=== PATIENT | male | born 1950 | race American Indian/Alaskan Native ===

== ENCOUNTER 2017-11-27 10:30 | Emergency (ER) | payer MEDICARE, OTHER ==
[2017-11-27] MEDS ORDERED: NACL 0.9% 1000 ML 1,000 ML IV ONE ×2 (10:43→11:17)
[2017-11-27] MEDS ORDERED: TORADOL IV ONE (11:17)
[2017-11-27] MEDS ORDERED: BENADRYL IV ONE (11:17)
[2017-11-27] MEDS ORDERED: REGLAN IV ONE (11:17)
[2017-11-27] MEDS ORDERED: DECADRON IV ONE (11:18)
[2017-11-27] MEDS ORDERED: ALUM-MAG HYDROX-SIMETH 200-200-20MG/5ML PO ONE (11:18)
--- NOTE | 2017-11-27 11:25 | Emergency Department Report ---
ED Abdominal Pain HPI - General Chief Complaint: Abdominal Pain Stated Complaint: ABDOMINAL PAIN Time Seen by Provider: 11/27/17 11:04 Source: patient, EMS Mode of arrival: Wheelchair Limitations: No Limitations - History of Present Illness Initial Comments: Mr lara is a 67 year-old man with hx of HTN, DM, menieres disease who presents with abdominal pain, ULRICH and vertigo. Reports meniere disease flare since this morning. Reports vertigo elicited with standing. Reports this feel like previous attacks. Reports onset of ULRICH when he came into the ED. Has a hx of migraine HAs that are elicited by light. ULRICH is behind his eyes, worse with light exposure. has had abdominal pain since last night. LLQ mostly. had small, loose BM last night. Endorses chills/sweats, no fever. No chest pain. no shortness of breath. Reports being told he needs abdominal surgery, but he does not know for what. he does not know nearly any of his PMH, just asks us to refer [facility]. has his active diagnoses and mediation list only. On protonix. No other abominal meds. MD Complaint: abdominal pain -: Gradual, days(s) Location: LLQ Radiation: none Migration to: no migration Severity: moderate Quality: stabbing Consistency: intermittent Improves With: nothing Worsens With: nothing Associated Symptoms: chills - Related Data Allergies Allergy/AdvReac Type Severity Reaction Status Date / Time Unable to Assess Allergy Unverified 11/27/17 10:43 ED Review of Systems ROS: Stated complaint: ABDOMINAL PAIN Other details as noted in HPI Comment: All other systems reviewed and negative ED Past Medical Hx - Past Medical History Hx Hypertension: Yes Hx Diabetes: Yes Hx Renal Disease: Yes Hx Headaches / Migraines: Yes Hx Psychiatric Treatment: Yes Additional medical history: High cholesterol, osteoarthritis - Social History Smoking Status: Never Smoker Substance Use Type: None ED Physical Exam - General Limitations: No Limitations General appearance: alert, other (uncomfortable, clutching his stomach) - Head Head exam: Present: atraumatic, normocephalic - Eye Eye exam: Present: normal appearance, PERRL, EOMI - ENT ENT exam: Present: normal exam, normal orophraynx, mucous membranes moist - Neck Neck exam: Present: normal inspection, full ROM. Absent: tenderness, meningismus - Respiratory Respiratory exam: Present: normal lung sounds bilaterally, wheezes, rales, rhonchi. Absent: respiratory distress - Cardiovascular Cardiovascular Exam: Present: normal rhythm, tachycardia, normal heart sounds - GI/Abdominal GI/Abdominal exam: Present: soft, tenderness, other (epigastric and LLQ ttp). Absent: distended, guarding, rebound - Rectal Rectal exam: Present: deferred - Extremities Exam Extremities exam: Present: normal inspection, full ROM. Absent: tenderness - Back Exam Back exam: Present: normal inspection. Absent: tenderness, CVA tenderness (R), CVA tenderness (L) - Neurological Exam Neurological exam: Present: alert, altered. Absent: motor sensory deficit - Psychiatric Psychiatric exam: Present: anxious - Skin Skin exam: Present: warm, dry, intact ED Course Vital Signs 11/27/17 11/27/17 11/27/17 10:39 10:52 11:00 Temperature 98.4 F Pulse Rate 103 H 106 H 95 H Respiratory 20 22 22 Rate Blood Pressure 134/93 134/91 O2 Sat by Pulse 98 97 100 Oximetry ED Medical Decision Making - Lab Data Result diagrams: 11/27/17 11:02 11/27/17 11:02 Lab Results 11/27/17 11/27/17 11/27/17 Range/Units 11:02 11:02 11:02 WBC 13.8 H (4.5-11.0) K/mm3 RBC 5.49 H (3.65-5.03) M/mm3 Hgb 16.5 H (11.8-15.2) gm/dl Hct 49.1 H (35.5-45.6) % MCV 90 (84-94) fl MCH 30 (28-32) pg MCHC 34 (32-34) % RDW 14.5 (13.2-15.2) % Plt Count 386 (140-440) K/mm3 Lymph % (Auto) 10.0 L (13.4-35.0) % Pickett % (Auto) 4.1 (0.0-7.3) % Eos % (Auto) 0.3 (0.0-4.3) % Baso % (Auto) 0.2 (0.0-1.8) % Lymph # 1.4 (1.2-5.4) K/mm3 Pickett # 0.6 (0.0-0.8) K/mm3 Eos # 0.0 (0.0-0.4) K/mm3 Baso # 0.0 (0.0-0.1) K/mm3 Seg Neutrophils % 85.4 H (40.0-70.0) % Seg Neutrophils # 11.7 H (1.8-7.7) K/mm3 Sodium 140 (137-145) mmol/L Potassium 4.3 (3.6-5.0) mmol/L Chloride 92.1 L (98-107) mmol/L Carbon Dioxide 20 L (22-30) mmol/L Anion Gap 32 mmol/L BUN 20 (9-20) mg/dL Creatinine 1.3 (0.8-1.5) mg/dL Estimated GFR > 60 ml/min BUN/Creatinine Ratio 15 % Glucose 199 H (75-100) mg/dL Calcium 10.4 H (8.4-10.2) mg/dL Total Bilirubin 0.80 (0.1-1.2) mg/dL AST 28 (5-40) units/L ALT 26 (7-56) units/L Alkaline Phosphatase 88 (35-129) units/L Troponin T < 0.010 (0.00-0.029) ng/mL Total Protein 8.1 (6.3-8.2) g/dL Albumin 4.4 (3.9-5) g/dL Albumin/Globulin Ratio 1.2 % Lipase 22 (13-60) units/L - EKG Data 11/27/17 11:56 HR 83, sinus, left axis, LAFB, 1st degree AV block, diffusely flattened T-waves - Radiology Data Radiology results: report reviewed IMPRESSION: Fatty liver. Nonspecific low-density lesions. Indeterminate nodular hyperplasia of both adrenal glands. Mild cardiomegaly. Probable bilateral renal cysts. Bowel loops suggests gastroenteritis or enteral colitis with diarrhea. Differential diagnosis would include developing obstruction or ileus. Interval follow-up with x-rays may be helpful if clinically indicated. - Medical Decision Making Mr lara is a 67 year-old man who presents with ULRICH, nausea, abdominal pain, vertigo. Reports ULRICH is behind his eyes and is his normal migraine type of ULRICH. vertigo only when standing. Abdominal pain, fullness and desire to vomit for 18 hours. No nausea or vomiting, just wants to vomit. Endorses chills/sweats. Exam with RLQ ttp. Neuro intact. Low suspicion of ICH of mass as he reports normal ULRICH typology and neuro itnact. Will continue to eval. No nystagmus, neuro itnact , again low suspicion of CVA, will continue to eval. Concern for obstruction, constipation, diverticulitis vs perforation based on history and exam. Will await Cr to determine imaging modality. Cr 1.3. elevated WBC. Trop neg, EKG non- ischemic but with diffuse t-wave flattening. No CP, low suspicion of ACS. ULRICH cocktail with some improvement in symptoms. ordering Ct abdomen/pelvis with contrast which is unremarkable. Likely diarrheal illness. HR less than 100. ULRICH entirely resolved. No symptoms of vertigo when he stands. Given care instructions, return precautions. Safe for DC to home with pcp follow-up this coming week. Critical care attestation.: If time is entered above; I have spent that time in minutes in the direct care of this critically ill patient, excluding procedure time. ED Disposition Clinical Impression: Abdominal pain Qualifiers: Abdominal location: generalized Qualified Code(s): R10.84 - Generalized abdominal pain Diarrhea Qualifiers: Diarrhea type: presumed infectious Qualified Code(s): R19.7 - Diarrhea, unspecified Headache Qualifiers: Headache type: unspecified Headache chronicity pattern: acute headache Intractability: not intractable Qualified Code(s): R51 - Headache Disposition: DC-01 TO HOME OR SELFCARE Is pt being admited?: No Condition: Stable Instructions: Meniere Disease (ED), Migraine Headache (ED), Abdominal Pain (ED) Referrals: PRIMARY CARE,MD [Primary Care Provider] - 3-5 Days
[2017-11-27 11:32] LABS: Basophils % (Auto) 0.2 % (0.0-1.8); Eosinophils % (Auto) 0.3 % (0.0-4.3); Hematocrit 49.1 % (35.5-45.6); Hemoglobin 16.5 gm/dl (11.8-15.2); Lymphocytes # (Auto) 1.4 K/mm3 (1.2-5.4); Mean Corpuscular HGB Conc 34 % (32-34); Mean Corpuscular Hemoglobin 30 pg (28-32); Mean Corpuscular Volume 90 fl (84-94); Monocytes # (Auto) 0.6 K/mm3 (0.0-0.8); Monocytes % (Auto) 4.1 % (0.0-7.3); Platelet Count 386 K/mm3 (140-440); Red Blood Count 5.49 M/mm3 (3.65-5.03); Red Cell Distribution Width 14.5 % (13.2-15.2)
[2017-11-27 11:51] LABS: Albumin 4.4 g/dL (3.9-5); BUN/Creatinine Ratio 15; Blood Urea Nitrogen 20 mg/dL (9-20); Calcium 10.4 mg/dL (8.4-10.2); Hemolysis Index 181; Lipase 22 units/L (13-60)
[2017-11-27 11:53] LABS: Alanine Aminotransferase 26 units/L (7-56)
--- NOTE | 2017-11-27 14:22 | Cat Scan Report ---
FINAL REPORT EXAM: CT ABDOMEN PELVIS W CON HISTORY: abdominal pain TECHNIQUE: CT of the abdomen and pelvis with IV contrast. Coronal and sagittal reconstructed imaging provided. PRIORS: None currently available. FINDINGS: ABDOMEN: Bibasilar linear scarring discoid subsegmental atelectasis noted. Mild cardiomegaly. No pericardial effusion. Fatty liver. No suspicious enhancements. Low-density lesion in the left liver measures 1.3 cm. Smaller low-density lesion in the right liver measures 7.5 mm. Lesions are nonspecific. Gallbladder, stomach, spleen, and pancreas are unremarkable. Adrenals: Nodular hyperplasia of both adrenal glands identified. Attenuation indeterminate. Kidneys: 2.3 cm low-density lesion in the right kidney probably represents a cyst. Smaller low-attenuation lesion measuring 7 mm is too small to accurately characterize. Similar lesion noted within the left mid kidney measuring 8 mm. No hydronephrosis. No suspicious enhancing lesions. IVC is unremarkable. Mild aortic atherosclerotic disease. No aneurysm or dissection. No periaortic or retroperitoneal mass or adenopathy. [id number] distended large and small bowel loops identified. Air-fluid levels noted in the large and small colons. Fluid stool in the colon. Mild hyperemia noted. Appendix is normal. Terminal ileum is mildly distended fluid contacts. Some hyperemia noted. Mesentery is unremarkable. Fat-containing umbilical hernia without strangulation. PELVIS: Enlarged heterogeneous prostate. Bladder is unremarkable. Enlarged heterogenous bladder. There is no pelvic mass or adenopathy. Inguinal regions are unremarkable. Bones: No suspicious osseous lesions on this limited examination of the skeleton. Metastatic disease better evaluated with bone scan. Degenerative changes are in the spine. IMPRESSION: Fatty liver. Nonspecific low-density lesions. Indeterminate nodular hyperplasia of both adrenal glands. Mild cardiomegaly. Probable bilateral renal cysts. Bowel loops suggests gastroenteritis or enteral colitis with diarrhea. Differential diagnosis would include developing obstruction or ileus. Interval follow-up with x-rays may be helpful if clinically indicated.
[2017-11-27 15:44] LABS: Bilirubin,Urine NEG (Negative); Blood,Urine NEG (Negative); Color,Urine Yellow (Yellow); Mucus,Urine 2+ /HPF; Protein,Urine <15 mg/dL mg/dL (Negative); Urobilinogen,Urine < 2.0 mg/dL (<2.0)
[2017-11-27 15:46] LABS: Amphetamine Screen,Urine PRESUMPTIVE NEGATIVE; Benzodiazepines Screen,Urine PRESUMPTIVE NEGATIVE; Cannabinoid Screen,Urine PRESUMPTIVE NEGATIVE; Cocaine Screen,Urine PRESUMPTIVE NEGATIVE; Methadone Screen,Urine PRESUMPTIVE NEGATIVE; Opiate Screen,Urine PRESUMPTIVE NEGATIVE
[2017-11-27 18:00] VITALS: BP 148/88
== END 2017-11-27 17:58 | disposition home or self-care (01) ==
LOC: ED 10:30
DX: R10.84 Generalized abdominal pain (principal); R42 Dizziness and giddiness; R19.7 Diarrhea, unspecified; I10 Essential (primary) hypertension; E11.9 Type 2 diabetes mellitus without complications; G43.909 Migraine, unspecified, not intractable, without status migrainosus; E78.00 Pure hypercholesterolemia, unspecified
CPT/HCPCS: 36415; 74177; 80053; 80307; 81001; 83690; 84484; 85025; 93005; 93010; 96361; 96374; 96375; 99284; J1100; J1200; J1885; J2765; J7030; Q9967